=== PATIENT | female | born 2005 | race Caucasian/White ===

== ENCOUNTER 2025-02-27 08:05 | Outpatient (REF) | payer BC, SELFPAY ==
--- OUTSIDE RECORDS SUMMARY | 2023-11-05 08:20 | XMS_ITS ---
Author Organization [facility] Address [address] [place] [phone] Care Team Providers Care Furnace Worker Name Role Phone Caroline Pozo Primary Care Provider Kimberlee Tucker [phone] REASON FOR VISIT 18yr, utd Encounters Encounter Location Date Provider Diagnosis [address] [id number] 11/05/2023 Kimberlee Tucker Plan Of Treatment Next Appt Details Provider Name:Caroline Pozo, 11/20/2025 04:00:00 PM, [address] [place], [place], [phone], Progress Notes * VIOLA CUEVA CDOB:11/2004 (20 yo F)Acc No.[id number]:11/05/2023 Progress note Patient: Mick SIMMS VIOLA Wyatt Provider: Miranda Tucker NP :2005 A ge:18 Y S ex:Female Date:11/05/2023 Phone: Address:[address] [place] [address], [place], [id number] Pcp:Caroline Pozo Subjective: * Chief Complaints: * 1 . 18yr. 2. Utd. * Medical History: Objective: * Vitals: Assessment: Plan: * Treatment: * * Electronic signature of ADAN Zee,[facility] on 02/27/2025 at 08:19 AM EST Sign off status: Pending * Provider: Miranda Tucker NP Date: 11/05/2023 Generated for Printi ng/Famajog/eTransmitting on: 1 04/30/2024 08:19 AM EST
--- OUTSIDE RECORDS SUMMARY | 2024-03-02 08:20 | XMS_ITS ---
Author Organization [facility] Address [address] [place] [id number] Care Team Providers Care Direct Support Worker Name Role Phone Caroline Pozo Primary Care Provider [phone] Mili Mack Unavailable [phone] REASON FOR VISIT 19yr- FILL OUT ADULT FORMS Encounters Encounter Location Date Provider Diagnosis [address] [id number] 03/02/2024 Mili Mack Plan Of Treatment Next Appt Details Provider Name:Caroline Pozo, 11/20/2025 04:00:00 PM, [address] [place], [place], [phone], Progress Notes * VIOLA CUEVA CDOB:11/2004 (20 yo F)Acc No.[id number]:03/02/2024 Progress note Patient: Mick SIMMS VIOLA Wyatt Provider: Nitish Mack PA-C :2005 A ge:19 Y S ex:Female Date:03/02/2024 Phone: Address:[address] [place] [address], [id number] Pcp:Caroline Pozo Subjective: * Chief Complaints: * 1 . 19yr- FILL OUT ADULT FORMS. * Medical History: Objective: * Vitals: Assessment: Plan: * Treatment: * * Electronic signature of Cornelius Mack PA-C on 02/27/2025 at 08:19 AM EST Sign off status: Pending * Provider: Nitish Mack PA-C Date: 05/03/2023 Generated for Juan roger/Francheska/Rosalindaitting on: 1 04/30/2024 08:19 AM EST
--- OUTSIDE RECORDS SUMMARY | 2024-10-31 11:40 | XMS_ITS ---
Author Organization [facility] Address [address] [place] [phone] Care Team Providers Care Assembler [employer] Name Role Phone Caroline Pooz Primary Care Provider REASON FOR VISIT 19yr, utd Encounters Encounter Location Date Provider Diagnosis [address] [phone] 10/31/2024 Caroline Pozo Plan Of Treatment Next Appt Details Provider Name:Caroline Pozo, 11/20/2025 04:00:00 PM, [address] [place] [address], [phone], Progress Notes * VIOLA CUEVA CDOB:11/2004 (20 yo F)Acc No.[id number]:10/31/2024 Progress Notes Patient: VIOLA MOONEY Provider: Elliot Pozo MD :2005 A ge:19 Y S ex:Female Date:10/31/2024 Phone: Address:[address] [place], [place] [phone] Subjective: * Chief Complaints: * 1 . 19yr. 2. Utd. * Medical History: Objective: * Vitals: Assessment: Plan: * Treatment: * * Electronic signature of Emilio Pozo MD on 02/27/2025 at 08:19 AM EST Sign off status: Pending * Provider: Elliot Pozo MD Date: 0 10/31/2024 Generated for Printi ng/Faxing/eTransmitting on: 04/30/2024 08:19 AM EST
--- OUTSIDE RECORDS SUMMARY | 2024-11-18 16:30 | XMS_ITS ---
Author Organization [facility] Address [address] [place] [phone] Care Team Providers Care Supply Chain Director Name Role Phone Caroline Pozo Primary Care Provider [phone] Migration, Provider Unavailable Unavailable Allergies Allergen (clinical drug ingredient) Drug/Non Drug Allergy documented on EMR Reaction Allergy Type Onset Date Status amoxicillin Amoxicillin Unknown Drug Allergy Act oh [facility] Encounter Medications Medication SIG (Take, Route, Frequency, Duration) Notes Start Date End Date Status Naloxone HCl 4 MG/0.1 ML DIRECTED INTRANASALLY ONCE *Please review and pick correct strength-formulati on from Medispan options. If intended option is not shown, discontinue and re-order from Quick Search* 11/03/2022 Not-Taking KALYANI (28 DAY) 3 MG-0.02 MG 1 TAB(S) ORALLY ONCE A DAY; Duration: 84 DAYS *Please review for potential replacement for e-prescription and drug interaction check* 11/03/2022 Not-Taking Sertraline HCl 50 MG 1 tab(s) orally once a day; Duration: 30 days Not-Taking Encounters Encounter Location Date Provider Diagnosis [address] [phone] 11/18/2024 Provider Migration Plan Of Treatment Next Appt Details Provider Name:Caroline Pozo, 11/20/2025 04:00:00 PM, [address] [place] [address], [phone], Progress Notes * VIOLA CUEVA CDOB:120 11/2004 (20 yo F)Acc No.[id number]:11/18/2024 Patient: VIOLA MOONEY Provider: :2005 A ge:19 Y S ex:Female Date:11/18/2024 Phone: Address:[address] [place] [address], [place], [place] Pcp:Caroline Pozo Subjective: * Chief Complaints: * 1 . Multum To Medispan Conversion Encounter. * Medical History: * Medications: N ot-Taking Naloxone HCl 4 MG/0.1 ML SPRAY DIRECTED INTRANASALLY ONCE , Notes to Pharmacist: *Please review and pick correct strength-formulation from [facility]. If intended option is not shown, discontinue and re-order from Quick Search*, Not-Taking Sertraline HCl 50 MG Tablet 1 tab(s) orally once a day , Not-Taking KALYANI (28 DAY) 3 MG-0.02 MG TABLET 1 TAB(S) ORALLY ONCE A DAY , Notes to Pharmacist: *Please review for potential replacement for e-prescription and drug interaction check* * Allergies: A moxicillin. Objective: * Vitals: Assessment: Plan: * Treatment: * * Electronic signature of Prov ider Migration on 02/27/2025 at 08:18 AM EST Sign off status: Pending * Provider: Date: 0 11/18/2024 Generated for Juan roger/Francheska/Ema on: 04/30/2024 08:18 AM EST
--- NOTE | ~2025-02-27 | US_ITS ---
EXAMINATION: US PELVIS CLINICAL INFORMATION: IUD check COMPARISON: None available. TECHNIQUE: Ultrasound of the pelvis is performed using both transabdominal and transvaginal transducers along with Doppler. Transvaginal imaging is performed due to inadequate visualization transabdominally. FINDINGS: Uterus: The uterus is anteflexed and measures 7.3 x 2.8 x 4.4 cm. The double wall endometrial thickness is 3 mm. An IUD projects in the upper uterine cavity. The uterus is smooth in contour and has normal myometrial echogenicity. No visible fibroid. Adnexa: Both ovaries are visualized. There is normal color flow to the adnexa. There is no ovarian torsion. There is no pelvic ascites or fluid collection. Right ovary measures 4.0 2.5 x 2.3 cm. There is a mature follicle Left ovary measures 3.5 x 1.6 x 1.5 cm. US/US pelvic and transvaginal IMPRESSION: Appropriate positioned IUD Electronically signed by: Sage Steele MD 02/27/2025 10:44 AM MARTÍNEZ
--- OUTSIDE RECORDS SUMMARY | 2025-02-27 08:19 | XMS_ITS | Patient Health Record ---
Author Organization [facility] Address [address] [place], [place] [phone] Care Team Providers Care Drug Abuse Program Coordinator Name Role Phone Caroline Grant Primary Care Provider [phone] Mili Mack Unavailable [phone] Migration, Provider Unavailable Unavailable Allergies Allergen (clinical drug ingredient) Drug/Non Drug Allergy documented on EMR Reaction Allergy Type Onset Date Status amoxicillin Amoxicillin Unknown Drug Allergy Act oh Results Component Value Reference Range Notes AMPLIFIED PROBE, CHLAM AND G C, URINE Reviewed date:11/20/2024 11:59:20 AM Interpretation: Performing Lab: Notes/Report: [facility] [address] [place] [address] Ordering Provider: CAROLINE GRANT Copied To: , GONOR AMPL PROBE Negative Negative, Indeterminate CHLAM AMPL PROBE Negative Negative Note See Below For Report [facility] CHLAMYDIA Reviewed date:11/20/2024 12:00:36 PM Interpretation: Performing Lab: Notes/Report: Reason For Referral No Information Medications Medication SIG (Take, Route, Frequency, Duration) Notes Start Date End Date Status Naloxone HCl 4 MG/0.1 ML DIRECTED INTRANASALLY ONCE *Please review and pick correct strength-formulati on from [employer] options. If intended option is not shown, discontinue and re-order from Quick Search* 11/03/2022 Not-Taking KALYANI (28 DAY) 3 MG-0.02 MG 1 TAB(S) ORALLY ONCE A DAY; Duration: 84 DAYS *Please review for potential replacement for e-prescription and drug interaction check* 11/03/2022 Not-Taking Sertraline HCl 50 MG 1 tab(s) orally once a day; Duration: 30 days Not-Taking Immunizations Vaccine Route Administration Date Status Comme nts VARIVAX - PUBLIC Unknown 03/12/2008 Administered VARIVAX - PUBLIC Unknown 05/12/2010 Administered TDAP * IM Intramuscular 02/19/2016 Administered Prevnar 13 Unknown 2004 Administered Prevnar (#4) Unknown 03/22/2009 Administered Prevnar (#3) Unknown 2004 Administered Prevnar (#2) Unknown 2004 Administered MMR* Unknown 10/31/2009 Administered MMR Unknown 03/12/2008 Administered Meningitis B Purchased* IM Intramuscular 11/18/2021 Admini stered Meningitis B * State Supply IM Intramuscular 12/18/2021 Administered MENACTRA-STATE SUPPLY * IM Intramuscular 02/19/2016 Admini stered MENACTRA-STATE SUPPLY * IM Intramuscular 06/27/2020 Admini stered IPV * Unknown 2004 Administered IPV (#4) * Unknown 10/31/2009 Administered IPV (#3) * Unknown 03/22/2009 Administered IPV (#2) * Unknown 2004 Administered Influenza > 6 months of age Unknown 12/28/2013 Administered Influenza > 6 months of age IM Intramuscular 2015 Administered Influenza > 6 months of age IM Intramuscular 02/19/2016 Administered Influenza > 6 months of age IM Intramuscular 04/08/2017 Administered Influenza > 6 months of age IM Intramuscular 01/21/2018 Administered Influenza > 6 months of age IM Intramuscular 12/27/2018 Administered Influenza > 6 months of age Unknown 12/27/2019 Administered cvs Influenza > 6 months of age IM Intramuscular 12/18/2021 Administered Influenza Purchased Unknown 03/19/2021 Administered HPV9-State Supply * IM Intramuscular 10/21/2017 Administer ed HPV9-State Supply * IM Intramuscular 10/24/2020 Administer ed Hib (#4) * Unknown 03/22/2009 Administered Hib (#3) * Unknown 2004 Administered Hib (#2) * Unknown 2004 Administered Hib Unknown 2004 Administered Hepatitis B (#4) * Unknown 11/03/2012 Administered Hepatitis B (#3) * Unknown 2004 Administered Hepatitis B (#2) * Unknown 2004 Administered Hepatitis A (#2), State Supply * Unknown 03/22/2009 Administered Hepatitis A (#1), State Supply * Unknown 03/04/2007 Administered HEP B Unknown 2004 Administered DTaP (#5) * Unknown 10/31/2009 Administered DTaP (#4) * Unknown 03/22/2009 Administered DTaP (#3) * Unknown 2004 Administered DTaP (#2) * Unknown 2004 Administered DTaP Unknown 2004 Administered COVID-19 Pfizer Unknown 06/24/2020 Administered COVID-19 Pfizer Unknown 07/17/2020 Administered COVID-19 Pfizer Unknown 03/19/2021 Administered Social History PHQ2 Question Answer Notes Little interest or pleasure in doing things No Feeling down depressed or hopeless No PHQ9 Question Answer Notes Little interest or pleasure in doing things Not at all Feeling down, depressed, or hopeless Not at all Trouble falling or staying asleep, or sleeping t oo much Several days Feeling tired or having little energy Several da ys Poor appetite or overeating Not at all Feeling bad about yourself-o r that you are a failure or have let yourself or your family down Several days Trouble concentrating on thi ngs, such as reading the newspaper or watching television Several days Moving or speaking so slowly that other people could have noticed. Or the opposite - being so fidgety or restless that you have been moving around a lot more than usual Not at all Thoughts that you would be b [place] off , or of hurting yourself in some way Not at all Total Score 4 Intepretation Minimal Depression Problems Problem Type SNOMED Code ICD Code Onset Dates Problem Status W/U Status Risk Notes Problem Anxiety (55488101) Anxiety (F41.9) Active confirmed Problem Impacted cerumen (39086442) Impacted cerumen of left ear (H61.22) Active confirmed Problem Irregular menstrual bleeding (75459252) Irregular menstrual bleeding (N92.6) Active confirmed Problem 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 Problem Verruca plantaris (83807967) 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) Active confirmed Vital Signs Blood pressure diastolic 69 mm Hg 11/14/2024 Height 62.5 in 11/14/2024 Blood pressure systolic 107 mm Hg 11/14/2024 Weight 169.4 lbs 11/14/2024 BMI 30.49 kg/m2 11/14/2024 Encounters Encounter Location Date Provider Diagnosis [facility] [address] [place] [phone] 11/18/2024 Provider Migration [address] [phone] 11/14/2024 Caroline Grant Encounter for general adult medical examination without abnormal findings Z00.00 and Risk for sexually transmitted disease Z72.51 Assessments Encounter Date Diagnosis (ICD Code) Assessment Notes Treatment Notes Treatment Clinical Notes Section Notes 11/14/2024 Encounter for general adult medical examination without abnormal findings (ICD-10 - Z00.00) anticip. guidance pertinent to late adolescence. Nutrition and physical activity discd, educational materials given. PHQ-9 score= CAGE-AID negative She feels very good - therapy and exercise and living on her own w/ friends has been very helpful 11/14/2024 Risk for sexually transmitted disease (ICD-10 - Z72.51) Plan Of Treatment Next Appt Details Provider Name:Caroline Grant, 11/20/2025 04:00:00 PM, [address] [place] [address], [phone], Insurance Providers Payer Name Payer Address Payer Phone Subscriber Number Group Number Insured Name Patient Relationship to Insured Coverage Start Date Coverage End Date Blue Cross And Blue Shield [facility] [address] [place] [address] [id number] LOLITA CUEVA Child - Insured has Financial Responsibility 5 Medical (General) History Medical History History ICD Code Seasonal allergies
--- OUTSIDE RECORDS SUMMARY | 2025-02-27 08:19 | XMS_ITS | Clinical Summary ---
Author Organization [facility] Address [address] [place] [address] Care Team Providers Care Stylist Assistant Name Role Phone Caroline Pozo MD Primary Care Provider [phone] Allergies Active Allergy Reactions Criticality Noted Date Comments Amoxicillin Rash Low 08/13/2014 Medications No known medications Social History Tobacco Use Types Packs/Day Years Used Date Smoking Tobacco: Never Alcohol Use Standard Drinks/Week Comments Not Asked 0 (1 standard drink = 0.6 oz pur e alcohol) Comments No Sex and Gender Information Value Date Recorded Sex Assigned at Not on file Legal Sex Female 6:07 PM EDT Gender Identity Not on file Sexual Orientation Not on file Last Filed Vital Signs Vital Sign Reading Time Taken Comments Blood Pressure - - Pulse - - Temperature 36.6 C (97.8 F) 08/13/2014 6:15 PM EDT Respiratory Rate - - Oxygen Saturation - - Inhaled Oxygen Concentration - - Weight - - Height - - Body Mass Index - - Plan of Treatment Not on file Medical Devices Not on file Insurance Care Teams Stylist Assistant Relationship Specialty Start Date End Date Caroline Pozo MD [address] [place] [phone] PCP - General Pediatrics 08/13/14
== END 2025-02-27 08:06 | disposition home or self-care (01) ==
LOC: HO.UMASIMG 08:05
PROVIDERS: Visit Provider Family Medicine
DX: Z30.430 Encounter for insertion of intrauterine contraceptive device (principal)
CPT/HCPCS: 76830; 76856

== ENCOUNTER → 2025-02-27 09:58 | Outpatient (BNV) | payer BC, SELFPAY | PROVIDERS: Visit Provider Radiology Diagnostic Radiology | DX: N83.01 Follicular cyst of right ovary (principal); Z30.431 Encounter for routine checking of intrauterine contraceptive device | CPT/HCPCS: 76830; 76856 ==